=== PATIENT | female | born 1960 | race Caucasian/White ===

== ENCOUNTER 2023-01-04 17:42 | Emergency (ER) | payer OTHER ==
[~2023-01-04] VITALS: Ht 154.9 cm; Wt 99.8 kg
[2023-01-04 17:50] VITALS: BP 166/74
[2023-01-04] MEDS ORDERED: KETO.5OPSO RIGHTEYE (18:54)
== END 2023-01-04 19:10 | disposition home or self-care (01) ==
LOC: ER 17:42
DX: S05.02XA Injury of conjunctiva and corneal abrasion without foreign body, left eye, initial encounter (principal); X58.XXXA Exposure to other specified factors, initial encounter
CPT/HCPCS: 99283; A9270